=== PATIENT | male | born 1970 | race Caucasian/White ===

== ENCOUNTER 2020-03-28 11:07 | Emergency (ER) | payer OTHER, SELFPAY ==
[2020-03-28 11:14] VITALS: BP 137/83; PULSE 102; RESP 20; TEMP 37; O2SAT 100
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
== END 2020-03-28 11:50 | disposition home or self-care (01) ==
PROVIDERS: Emergency Provider Nurse Practitioner Family
DX: L03.115 Cellulitis of right lower limb (principal); E78.00 Pure hypercholesterolemia, unspecified; I10 Essential (primary) hypertension
CPT/HCPCS: 99203; G0463

== ENCOUNTER 2024-05-17 01:35 | Emergency (ER) | payer OTHER, SELFPAY ==
[2024-05-17 02:00] VITALS: BP 146/92; PULSE 81; RESP 14; TEMP 36.4; O2SAT 100
--- NOTE | 2024-05-17 02:57 | ED_ITS ---
HPI - Eye Problem General Chief complaint: Eye Problems Stated complaint: eyes; burning and itching, feel like sand in them Time Seen by Provider: 05/17/24 02:40 History of Present Illness HPI Narrative: Patient is a 53-year-old male who presents to the emergency department this evening complaining of bilateral conjunctival injection, itchiness and some blurry vision. Patient is unable to tell me when his symptoms started and what caused it. He denies any thing getting into his eye eyes including any chemicals. Patient is asleep during my examination and is a poor historian. Admits that his symptoms have been ongoing for a few days and states that it does hurt to open his eyes. Denies any additional symptoms or concerns. The remainder of history of present illness and review of systems limited secondary to patient's poor historian status. Related Data Allergies Allergy/AdvReac Type Severity Reaction Status Date / Time No Known Allergies Allergy Verified 05/17/24 02:05 Review of Systems Review of Systems: All systems are reviewed and are negative unless stated otherwise in the HPI. [facility] Past Medical History Medical History Hypercholesterolemia Hypertension Exam Narrative: General: Alert, awake, afebrile, in no acute distress. HEENT: PERRL, no rhinorrhea, no post nasal drip, oropharynx clear, bilateral conjunctivitis with mild left sided chemosis, no evidence of corneal abrasion with fluorescein staining, no dendritic lesions or sidel sign. Cardiovascular: Regular rate and rhythm, no murmurs, rubs or gallops, no peripheral edema. Respiratory: Clear to auscultation bilaterally, no tachypnea, no wheezing, no rhonchi, no rubs, no respiratory distress. Abdomen: Soft, nontender, nondistended, no rebound, no guarding, no peritoneal signs. Musculoskeletal: No joint swelling or deformity, normal muscle tone. Skin: No rashes or petechia, no signs of infection. Neurological: Alert and oriented to person, place, and time. Follows all commands. No focal deficits, speech is clear and fluent. Course Vital Signs Vital signs: Vital Signs Temperature 97.6 F 05/17/24 02:00 Pulse Rate 81 05/17/24 02:00 Respiratory Rate 14 05/17/24 02:00 Blood Pressure 146/92 H 05/17/24 02:00 Pulse Oximetry 100 05/17/24 02:00 Oxygen Delivery Room Air 05/17/24 02:00 Temperature 97.6 F 05/17/24 02:00 Pulse Rate 82 05/17/24 04:29 Respiratory Rate 16 05/17/24 04:29 Blood Pressure 139/87 05/17/24 04:29 Pulse Oximetry 99 05/17/24 04:29 Oxygen Delivery Room Air 05/17/24 02:00 MDM - Eye Problem MDM Narrative Medical decision making narrative: The patient was evaluated by myself in the emergency department. History is obtained from patient who is an independent historian and physical exam was performed. External medical records were reviewed at this time. Patient's eyes were irrigated and examined under Wood's lamp after fluorescent staining with tetracaine revealing no foreign bodies, no evidence of corneal abrasions, dendritic lesions or sidel sign. Patient was informed that he likely has viral versus bacterial conjunctivitis and was started on ciprofloxacin ophthalmic drops. Differential diagnosis considerations include bacterial versus viral conju nctivitis, corneal abrasion, chemical eye burn. Comorbidities impacting this visit include none. I have evaluated and discussed social determinants of health with the patient that could potentially impact subsequent diagnosis and treatment plans. On repeat assessment of the patient, reevaluation revealed that the patient is doing well and is in no acute distress. Patient symptoms have improved since he arrived to our emergency department. Repeat vital signs were all reviewed and noted to be stable. Differential diagnosis and treatment plan were discussed with the patient at bedside. Patient agrees with discussion and after shared medical decision making agrees with discharge. All questions were answered to the patient's satisfaction. Patient will follow up with [facility] in 2-3 days. He was instructed to use the ciprofloxacin eye drops that he was provided with a in the emergency department as instructed. Patient was provided with strict return precautions and instructed to return to the emergency department if any new or worsening symptoms develop. The patient was discharged in stable condition. Discharge Plan Discharge Clinical Impression: Bacterial conjunctivitis Patient Disposition: Home, Self-Care Condition: Improved Instructions: Antibiotic Form, Conjunctivitis (ED) Additional Instructions: Please use the eyedrops that you were provided in the emergency department as instructed for your bilateral conjunctivitis. Follow-up with the [facility], phone number is [phone] within the next 2-3 days. Return to the ED if any new or worsening symptoms develop. Prescriptions: No Action sulfamethoxazole-trimethoprim [Bactrim DS] 800-160 mg tablet 1 tablet PO Q12H 7 Days Qty: 14 0RF mupirocin 2 % ointment 1 applic TOPICAL TID Qty: 30 0RF Follow-up/Referrals: PHYSICIAN NOT ON STAFF,NONSTAFF [Primary Care Provider] - Bruce Yu MD [Physician] - 1 Week Time of Disposition: 02:59
[2024-05-17] MEDS: DACRIOSE EYE IRRIGATION 118 ML BOTTLE EACH EYE (04:21)
[2024-05-17] MEDS: TETRACAINE HCL 0.5% OPHTH SOLN 4 ML BTL EACH EYE (04:22)
[2024-05-17] MEDS: CIPROFLOXACIN HCL 0.3% OP SOLN 2.5 ML BTL 2 DROP EACH EYE (04:22)
[2024-05-17] MEDS: FLUORESCEIN SOD 1 MG/STRIP EACH EYE (04:22)
[2024-05-17 04:29] VITALS: BP 139/87; PULSE 82; RESP 16; O2SAT 99
== END 2024-05-17 04:31 | disposition home or self-care (01) ==
LOC: ANHED 03:01
PROVIDERS: Emergency Provider Emergency Medicine
DX: H10.89 Other conjunctivitis (principal); I10 Essential (primary) hypertension; E78.00 Pure hypercholesterolemia, unspecified
CPT/HCPCS: 99283; A9270